=== PATIENT | female | born 1935 | race Asian ===

== ENCOUNTER 2017-06-08 08:10 | Day surgery (SDC) | payer MEDICARE, MEDICAID ==
[~2017-06-08 08:10] MED LIST: BACITRACIN 50,000 UNIT ONE; BUPIVACAINE/PF-EPI 0.5% 1:200K ONE
== END 2017-06-08 09:26 | disposition home or self-care (01) ==
LOC: OUT 08:10
PROVIDERS: ATTEND Surgery
DX: Z02.9 Encounter for administrative examinations, unspecified (principal)

== ENCOUNTER 2017-07-20 08:24 | Day surgery (SDC) | payer MEDICARE, MEDICAID ==
[~2017-07-20] VITALS: Ht 160 cm; Wt 60.0 kg
[2017-07-20] MEDS ORDERED: EPINEPHRINE 1 MG/ML, 1ML ONE (09:04)
[2017-07-20] MEDS ORDERED: BUPIVACAINE/PF 0.5% ONE (09:04)
[2017-07-20] MEDS ORDERED: FENTANYL PF 100 MCG/2ML ONE ×2 (09:13→11:22)
[2017-07-20] MEDS ORDERED: LACTATED RINGERS 1,000 ML IV SCH (09:25)
[2017-07-20 09:28] VITALS: BP 116/71
[2017-07-20] MEDS ORDERED: TAMS0.4C2 PO (09:28)
[2017-07-20] MEDS ORDERED: SERT50TA5 PO (09:28)
[2017-07-20] MEDS ORDERED: ATOR20TA9 PO (09:28)
[2017-07-20] MEDS ORDERED: DONE5TAB7 PO (09:28)
[2017-07-20] MEDS ORDERED: METF500T4 PO (09:28)
[2017-07-20] MEDS ORDERED: ALPR0.254 PO (09:28)
[2017-07-20] MEDS ORDERED: ONDANSETRON 2MG/ML, 2ML ONE (09:38)
[2017-07-20] MEDS ORDERED: PHENYLEPHRINE 10 MG/ML ONE (09:38)
[2017-07-20] MEDS ORDERED: DEXAMETHASONE 4 MG/ML, 1ML ONE (09:38)
[2017-07-20] MEDS ORDERED: ROCURONIUM 10 MG/ML ONE (09:38)
[2017-07-20] MEDS ORDERED: KETOROLAC 30 MG/1 ML ONE (09:38)
[2017-07-20] MEDS ORDERED: CEFAZOLIN 1,000 MG ONE (09:38)
[2017-07-20] MEDS ORDERED: SUCCINYLCHOLINE 20 MG/ML, 10ML ONE (09:38)
[2017-07-20] MEDS ORDERED: PROPOFOL 10 MG/ML, 20ML ONE (09:38)
[2017-07-20] MEDS ORDERED: EPHEDRINE 50 MG/ML, 1ML ONE (09:38)
[2017-07-20] MEDS ORDERED: OXYcodone 5 MG/5 ML ORAL.SOL UDC PO PRN (10:00)
[2017-07-20] MEDS ORDERED: hydrALAzine 20 MG/ML, 1ML IV PRN (10:00)
[2017-07-20] MEDS ORDERED: MIDAZOLAM 1 MG/ML, 2ML IV PRN (10:00)
[2017-07-20] MEDS ORDERED: ACETAMINOPHEN 325 MG TABLET PO PRN (10:00)
[2017-07-20] MEDS ORDERED: HYDROmorphone 1 MG/ML, 1ML IV PRN (10:00)
[2017-07-20] MEDS ORDERED: LABETALOL 5MG/ML, 20ML IV PRN (10:00)
[2017-07-20] MEDS ORDERED: PROMETHAZINE 25 MG/ML, 1ML IV PRN (10:00)
[2017-07-20] MEDS ORDERED: FENTANYL PF 100 MCG/2ML IV PRN (10:00)
[2017-07-20] MEDS ORDERED: ALBUTEROL SULFATE 2.5 MG/3 ML NPPB PRN (10:00)
[2017-07-20] MEDS ORDERED: ONDANSETRON 2MG/ML, 2ML IVPush PRN (10:00)
[2017-07-20] MEDS ORDERED: MEPERIDINE/PF 25MG/0.5ML IVPush PRN (10:00)
[2017-07-20] MEDS ORDERED: OXYcodone 5 MG/5 ML ORAL.SOL UDC ONE (11:22)
[2017-07-20] MEDS ORDERED: ACETAMINOPHEN 650 MG/20.3 ML UDC ONE (11:22)
== END 2017-07-20 13:45 ==
LOC: EDSEX 08:24 → OUT 08:24
PROVIDERS: ATTEND Surgery
DX: K40.90 Unilateral inguinal hernia, without obstruction or gangrene, not specified as recurrent (principal); E11.9 Type 2 diabetes mellitus without complications; E78.5 Hyperlipidemia, unspecified; N40.0 Benign prostatic hyperplasia without lower urinary tract symptoms; I10 Essential (primary) hypertension; F03.90 Unspecified dementia, unspecified severity, without behavioral disturbance, psychotic disturbance, mood disturbance, and anxiety
CPT/HCPCS: 49505; 82962; C1781; J0171; J0330; J0690; J1100; J1885; J2370; J2405; J2704; J3490; J3010